=== PATIENT | female | born 1990 | race Caucasian/White ===

== ENCOUNTER 2022-07-09 11:49 | Outpatient (CLI) | payer OTHER, SELFPAY ==
--- NOTE | ~2022-07-09 | DEXA_ITS ---
Bone Density Report Name: GINGER GOOD Age: 32 Sex: Female Ethnicity: White Date of : 1990 Indication: postmenopausal; Referring Provider: MARCO ARIAT Study: Bone densitometry was performed. Exam Date: July 09, 2022 Accession number: [id number] Bone Density: Region BMD T-score Z-score Classification Femoral Neck (Left) 0.641 -1.8 Total Hip (Left) 0.767 -1.4 Femoral Neck (Right) 0.657 -1.6 Total Hip (Right) 0.758 -1.5 Total Hip Mean 0.763 -1.5 World Health Organization criteria for BMD impression classify patients as: Normal (T-score at or above -1.0), Osteopenia (T-score between -1.0 and -2.5), or Osteoporosis (T-score at or below -2.5). 10-year Fracture Risk(1): Major Osteoporotic Fracture 2.6% Hip Fracture 0.6% Reported Risk Factors: [place] (), Neck BMD=0.641, BMI=30.2, smoking Input outside FRAX(R) limits. Adjusted to:Age=41 (1) FRAX(R) Version 3.08. Fracture probability calculated for an untreated patient. Fracture probability may be lower if the patient has received treatment. Clinical Information Provided by Patient: Smokes Has used the following medications: Vitamin D, Calcium Patient maximum height was 61 Does not regularly consume dairy products Drinks caffeinated beverages Onset of menses at age 14 Number of children 0 Impression: The patient has an estimated ten-year risk of hip fracture of 0.6% and an estimated ten-year risk of major fracture of 2.6%, based on the WHO FRAX algorithm. The patient has risk factors, including: smoking. Discussion: BONE DENSITY IS ABOVE THE MINIMUM DESIRABLE LEVEL AT ALL SKELETAL SITES TESTED. This patient?s bone mineral density is above the minimum desirable level (T-score -1.0 or better) at all sites measured. The patient should follow a healthful lifestyle (good nutrition with adequate calcium and vitamin D, and appropriate weight-bearing exercise). Follow-Up: Consider repeating this study in 5 years or sooner if there is some new clinical indication. Reported by: ORQUIDEA on 07/09/2022 12:09:00 PM. Reviewed, dictated and finalized at location [facility]
== END 2022-07-09 11:50 | disposition home or self-care (01) ==
PROVIDERS: PCP Emergency Medicine; Visit Provider Emergency Medicine
DX: M85.88 Other specified disorders of bone density and structure, other site (principal)
CPT/HCPCS: 77080

== ENCOUNTER 2024-04-09 08:08 | Outpatient (CLI) | payer OTHER, SELFPAY ==
[2024-04-09 08:53] LABS: Hematocrit 41.1 % (37.0-47.0); Hemoglobin 13.3 g/dL (12.0-15.0); Mean Corpuscular HGB Conc 32.4 g/dl (32-36); Mean Corpuscular Hemoglobin 28.2 pg (26-34); Mean Corpuscular Volume 87.3 fl (80-100); Mean Platelet Volume 9.3 fl (7.4-10.4); Platelet Count Result 477 k/mm3 (150-375); Red Blood Count 4.71 M/mm3 (4.2-5.4); Red Cell Distribution Width 13.2 % (11.5-14.5); White Blood Count 9.2 K/mm3 (4.5-10.0)
[2024-04-09 09:02] LABS: Appearance Urine Clear (Clear); Bilirubin Urine Negative (Negative); Blood Urine Negative (Negative); Color Urine Yellow (Yellow); Glucose Urine UA Negative (Negative); Ketones Urine Negative (Negative); Leukocyte Esterase Ur Negative LEU/UL (Negative); Nitrate Urine Negative (Negative); Protein Urine Negative (Negative); Specific Grav Ur 1.006 (1.001-1.035); Urobilinogen Urine 0.2 mg/dL (<2.0); pH Urine 7.5 (5.0-9.0)
[2024-04-09 09:05] LABS: Add Urine Microscopic? NO
[2024-04-09 09:07] LABS: Hemoglobin A1C 5.1 % (<5.7)
[2024-04-09 09:09] LABS: Alanine Aminotransferase 25 U/L (6-35); Albumin Level 4.3 g/dL (3.5-5.1); Alkaline Phosphatase 130 U/L (38-126); Anion Gap 8 mmol/L (4-12); Aspartate Amino Transferase 26 U/L (14-36); Blood Urea Nitrogen 12 mg/dL (7-17); Calcium 9.5 mg/dL (8.4-10.2); Carbon Dioxide 27 mmol/L (22-30); Chloride 104 mmol/L (98-107); Cholesterol 174 mg/dL (0-200); Estimated Glomerular Filt Rate 58; Glucose 90 mg/dL (65-110); HDL Direct 49 mg/dL; Potassium 3.9 mmol/L (3.4-5.0); Sodium 139 mmol/L (137-145); Triglycerides 255 mg/dL (<150)
[2024-04-09 09:15] LABS: Creatinine Urine 30.6 mg/dL
[2024-04-09 09:18] LABS: MALB Creatinine Ratio < 19.6 mg/g (0-30); Microalbumin Urine Random < 6.0 mg/L (0-16.7)
[2024-04-09 09:19] LABS: LDL Cholesterol Direct 93 mg/dL
[2024-04-09 09:29] LABS: Free T4 Free Thyroxine 0.97 ng/mL (0.78-2.19); Vitamin D 25 Hydroxy 56.3 ng/mL
== END 2024-04-09 08:09 | disposition home or self-care (01) ==
LOC: ANHLAB 08:10
PROVIDERS: PCP Emergency Medicine; Visit Provider Emergency Medicine
DX: Z00.00 Encounter for general adult medical examination without abnormal findings (principal)
CPT/HCPCS: 36415; 80053; 80061; 81003; 82043; 82306; 83036; 84439; 84443; 85027